=== PATIENT | female | born 1990 | race Caucasian/White ===

== ENCOUNTER 2019-01-25 22:55 | Outpatient (CLI) | payer BC ==
[~2019-01-25] VITALS: Ht 165.1 cm; Wt 54.7 kg
[2019-01-25] MEDS ORDERED: PREN-19 PO (23:42)
[2019-01-25 23:56] VITALS: BP 106/63; PULSE 88; RESP 18
--- NOTE | 2019-01-26 02:08 | PN ---
Triage Information Date/Time January 26, 2019 Reason for visit: Abd/pelvic pain Weeks of Gestation 22w 6d /Para 1/0 Diabetes: none Hypertention: none Additional information C/O LLQ pain x 3 days. No bleeding or leaking. PMHx: none. PSHx: LSC b/l ovarian cystectomies for endometrioma removal 04/2018 Objective Vital Signs Date Temp Pulse Resp B/P (MAP) Pulse Ox O2 O2 Flow FiO2 Time Delivery Rate 01/25/19 88 18 106/63 Room Air 23:56 (77) 01/25/19 98.2 23:43 Heart Rate: 140's Heart Rate Comments Accels to 160 bpm. No decels. Contractions: >10 Minutes Apart Exam Refused Results/Medications Results 24 hrs Laboratory Tests Test 01/25/19 23:10 Urine Color YELLOW Urine Clarity CLEAR Urine pH 6.0 Urine Specific [place] 1.027 Urine Ketones NEGATIVE Urine Nitrite NEGATIVE Urine Bilirubin NEGATIVE Urine Urobilinogen NEGATIVE Urine Leukocyte Esterase NEGATIVE Urine Hemoglobin NEGATIVE Urine Glucose NEGATIVE Urine Total Protein NEGATIVE Imaging Results Pt refused a cervical length. EFW 585 grams. VTX. Posterior placenta. Normal MERRY. Disposition: Discharge Assessment/Plan A: IUP at 23w. False labor. P: Pt took in adequate p.o. hydration while here, declined medication for the UC's that are minimally 20 minutes apart and usually much farther apart. Pt's doctor is at [facility] and she didn't want to do anything without her doctor's approval but came here as this hospital is close to her home. Pt d/c'ed home. Has an anatomy US 02/01 and the next appt with her doctor 02/09. Instructed to go see him sooner if she continues to feel the same way. MICHAEL CALDERON MD Jan 26, 2019 02:07
--- NOTE | 2019-01-26 02:34 | TRIAGE ---
OB Triage Datetime Report Generated by CPN: 01/26/2019 02:34 Datetime: 01/26/2019 01:45 Stage of : OB Triage Datetime: 01/26/2019 01:20 Stage of : OB Triage Labor Evaluation Frequency: 15-20 Monitor Mode: External Quality: Mild Pattern: Normal: <= 5 Contractions in 10 Minutes Resting Tone [place]: Relaxed Heart Rate FHR Baseline Rate: 140 Monitor Mode: External US FHR Baseline Changes: No Baseline Change Variability: Moderate 6-25 bpm Accelerations: 15X15 Decelerations: None Category: Category I Datetime: 01/26/2019 00:19 Stage of : OB Triage Labor Evaluation Frequency: 5-15 Monitor Mode: External Duration (sec)2399: 10-30 Quality: Mild Pattern: Normal: <= 5 Contractions in 10 Minutes Resting Tone [place]: Relaxed Heart Rate FHR Baseline Rate: 140 Monitor Mode: External US FHR Baseline Changes: No Baseline Change Variability: Moderate 6-25 bpm Accelerations: 10X10 Decelerations: None Category: Category I Datetime: 01/25/2019 23:30 Monitor Mode: External Quality: Mild Pattern: Normal: <= 5 Contractions in 10 Minutes Resting Tone [place]: Relaxed Heart Rate FHR Baseline Rate: 140 Monitor Mode: External US FHR Baseline Changes: No Baseline Change Variability: Moderate 6-25 bpm Accelerations: 10X10 Decelerations: None Category: Category I Datetime: 01/25/2019 23:20 Time of Arrival: 01/25/2019 22:45 EGA: 22.6 Arrived By: Ambulatory Arrived From: Home Chief Complaint: c/o LLQ pain and cramping x 3days Movement: Present Contractions: Regular Contractions: q10 Rupture of Membranes: Denies Vaginal Bleeding: None Vaginal Discharge: Denies Recent Sexual Intercouse: Denies Abdominal Trauma: Not Applicable Patient Complaints: Cramping Time Provider Notified: 01/25/2019 23:30 Provider Notified: Dr Grant Initial Plan: EFM,UA,PO HYDRATION,EFW,MERRY,CVL Datetime: 01/25/2019 23:08 Stage of : OB Triage Maternal Assessment Level of Consciousness: Fully Conscious Headache: Denies Blurred Vision: No Nausea/Vomiting: Denies RUQ Epigastric Pain: Denies Facial Edema: None Monitor Mode: External Resting Tone [place]: Relaxed Monitor Mode: External US Comments: FHT 150 Pain Assessment Pain Scale: 6 Pain Presence: Intermittent Pain Type: Cramping Pain Location: Abdomen
== END 2019-01-26 01:56 | disposition home or self-care (01) ==
LOC: OBT 22:55 → L-D 22:57 → OBT 01-26 01:56
PROVIDERS: ATTEND Obstetrics & Gynecology
DX: O26.892 Other specified pregnancy related conditions, second trimester (principal); Z3A.22 22 weeks gestation of pregnancy; R10.2 Pelvic and perineal pain; O47.1 False labor at or after 37 completed weeks of gestation; Z3A.23 23 weeks gestation of pregnancy
CPT/HCPCS: 76815; 81003; Z7500; G0463

== ENCOUNTER 2019-04-11 11:00 | Outpatient (CLI) | payer BC ==
[~2019-04-11 11:00] MED LIST: PREN-19 PO
--- NOTE | 2019-04-11 12:12 | TRIAGE ---
OB Triage Datetime Report Generated by CPN: 04/11/2019 12:12 Datetime: 04/11/2019 11:26 Time of Arrival: 04/11/2019 10:50 EGA: 33.1 Arrived By: Ambulatory Arrived From: Home Chief Complaint: LOWER ABD PAIN SINCE 0800 Movement: Present Contractions: Occasional Time Contractions Began: 04/11/2019 08:00 Rupture of Membranes: Unsure Vaginal Bleeding: None Vaginal Discharge: Denies Recent Sexual Intercouse: Denies Abdominal Trauma: Not Applicable Patient Complaints: Contractions Time Provider Notified: 04/11/2019 11:30 Provider Notified: DR BAEZ Initial Plan: EFM,CALL DR BAEZ Datetime: 04/11/2019 11:25 Maternal Assessment Level of Consciousness: Fully Conscious DTR's/Clonus: DTRs 2+; No Clonus Headache: Denies Blurred Vision: No Respiratory Effort: Unlabored; Regular Rhythm; Equal Expansion Breath Sounds, Left: Clear and Equal Breath Sounds, Right: Clear and Equal Nausea/Vomiting: Denies RUQ Epigastric Pain: Denies Facial Edema: None Temperature Route: Axillary Fall Risk Assessment History of Falling: (0) No Secondary Diagnosis: (0) No Ambulatory Aid: (0) Bedrest/Nurse Assist IV Therapy: (0) No Gait: (0) Normal/Bedrest/Immobile Mental Status: (0) Oriented to Own Ability Fall Score: 0 Fall Risk Score Definition: No Risk: No action required Datetime: 04/11/2019 11:09 Maternal Assessment Level of Consciousness: Fully Conscious DTR's/Clonus: DTRs 2+ Headache: Denies Blurred Vision: No Nausea/Vomiting: Denies RUQ Epigastric Pain: Denies Facial Edema: None Labor Evaluation Frequency: 3-6 Monitor Mode: External Duration (sec)2399: 60 Quality: Mild Pattern: Normal: <= 5 Contractions in 10 Minutes Resting Tone [place]: Relaxed Heart Rate FHR Baseline Rate: 150 Monitor Mode: External US FHR Baseline Changes: No Baseline Change Variability: Moderate 6-25 bpm Accelerations: 15X15 Decelerations: None Category: Category I Pain Assessment Pain Scale: 8 Pain Presence: Intermittent Pain Type: Contraction Pain Location: Abdomen Pain Goal: 0 Vaginal Exam Membrane Status: Intact Datetime: 01/25/2019 23:20 EGA: 22.2
--- NOTE | 2019-04-11 12:22 | PN ---
Triage Information Date/Time Reason for visit: Uterine contractions Weeks of Gestation 33+ /Para n/a Diabetes: none Hypertention: none Objective Heart Rate: 140's Contractions: >10 Minutes Apart Disposition: Discharge Assessment/Plan patient is refusing to have proper assessment in order to r/o labor She is refusing Cervical exam and FFn and ROM plus test She was extensively consulted on the risks and benefits mSHe agreed to be evaluated But I was informed by the nurse while I was in the middle of surgery that she changed her mind and signed herself out against medical advise ESVIN BAEZ M.D. Apr 11, 2019 12:22
== END 2019-04-11 12:00 | disposition left against medical advice (07) ==
LOC: OBT 11:00 → L-D 11:00 → OBT 12:00
PROVIDERS: ATTEND Obstetrics & Gynecology
DX: O62.9 Abnormality of forces of labor, unspecified (principal); Z3A.33 33 weeks gestation of pregnancy
CPT/HCPCS: G0463